=== PATIENT | male | born 1995 | race African-American/Black ===

== ENCOUNTER 2017-11-24 12:58 | Emergency (ER) | payer OTHER ==
[2017-11-24] MEDS: IPRATROPIUM 0.5MG/ALBUTEROL 2.5MG INH SOL UD 3ML (DUONEB)(J7620) NEB (14:05)
== END 2017-11-24 15:06 | disposition home or self-care (01) ==
LOC: M ED 12:58
DX: J04.0 Acute laryngitis (principal); R06.2 Wheezing; Z79.899 Other long term (current) drug therapy
CPT/HCPCS: 94640

== ENCOUNTER → 2018-07-12 | Outpatient (REF) | payer OTHER ==
[~2018-07-12] MED LIST: VENTAER INH; ZOLO100T PO
[2018-07-12 10:14] LABS: SEMEN APPEARANCE OPAQUE (OPAQUE); SEMEN VISCOSITY VISCOUS (LIQUID); SEMEN VOLUME 1.9 ml (4.0-5.0)
[2018-07-12 10:15] LABS: SPERM CONCENTRATION 4.7 M/ml (>=15.0); WBC CONCENTRATION >1 M/ml (<=1 M/ml)
== END ==
LOC: M LAB REF 08:58
PROVIDERS: ATTEND Physician Assistant
DX: Z31.41 Encounter for fertility testing (principal)